=== PATIENT | female | born 1995 | race Caucasian/White ===

== ENCOUNTER 2025-03-29 06:41 | Day surgery (SDC) | payer OTHER ==
[~2025-03-29] VITALS: Ht 170.2 cm; Wt 62.2 kg
[~2025-03-29 06:41] MED LIST: GABA-1490 PO
[2025-03-29] MEDS ORDERED: LR 1,000 ML IV SCH ×2 (07:20→10:30)
[2025-03-29] MEDS ORDERED: SUGAMMADEX SODIUM 500 MG/5 ML VIAL (BRIDION) As Ordered ONE (07:48)
[2025-03-29] MEDS ORDERED: ROCURONIUM BROMIDE 50MG/5ML VIAL As Ordered ONE (07:48)
[2025-03-29] MEDS ORDERED: ONDANSETRON 4MG 2ML VIAL As Ordered ONE (07:48)
[2025-03-29] MEDS ORDERED: LIDOCAINE 2% 100MG/5ML SDV (FOR ANES.) As Ordered ONE (07:48)
[2025-03-29] MEDS ORDERED: propofoL 200 MG/20 ML VIAL As Ordered ONE (07:48)
[2025-03-29] MEDS ORDERED: MIDAZOLAM INJ 2MG/2ML VIAL As Ordered ONE (07:52)
[2025-03-29] MEDS ORDERED: fentaNYL 100 MCG/2 ML INJECTION As Ordered ONE (07:53)
[2025-03-29] MEDS: CHLORHEXIDINE GLUCONATE 0.12 % 15ML UDC (PERIDEX ORAL RINSE) As Ordered ONE (08:18)
[2025-03-29] MEDS: OXYMETAZOLINE 0.05% NASAL SPRAY As Ordered ONE (08:59)
[2025-03-29] MEDS: AMPICILLIN SOD/SULBACTAM SOD 3 GM in D5W MINI-BAG 100 ML IV ONE (09:09)
[2025-03-29] MEDS ORDERED: ACETAMINOPHEN 1000MG/100ML IV BAG As Ordered ONE (09:12)
[2025-03-29] MEDS: LIDOCAINE 2% W/ EPINEPHRINE 1.7 ML DENTAL INJ As Ordered ONE (10:00)
[2025-03-29] MEDS: BUPivacaine LIPOSOME/PF 266MG 20ML VIAL (13.3MG/ML)(EXPAREL) As Ordered ONE (10:11)
[2025-03-29] MEDS ORDERED: fentaNYL 100 MCG/2 ML INJECTION IV PRN (10:30)
[2025-03-29] MEDS ORDERED: HYDROMORPHONE HCL 0.5 MG/ 0.5 ML SYRINGE IV PRN (10:30)
[2025-03-29] MEDS ORDERED: ONDANSETRON 4MG 2ML VIAL IV PRN (10:30)
[2025-03-29] MEDS: oxyCODONE 5MG TAB PO PRN (11:45)
[2025-03-29 12:25] VITALS: BP 89/53; TEMP 99; O2SAT 98
== END 2025-03-29 12:46 | disposition home or self-care (01) ==
LOC: M SDC 06:41
PROVIDERS: ATTEND Dentist
DX: K02.9 Dental caries, unspecified (principal); F41.9 Anxiety disorder, unspecified; F17.210 Nicotine dependence, cigarettes, uncomplicated
CPT/HCPCS: 81025; 88300; D7140; D7210; D9223; J0131; J0295; J0666; J1100; J2250; J2405; J3010